=== PATIENT | female | born 1985 | race Two or more races ===

== ENCOUNTER 2024-01-31 10:40 | Day surgery (SDC) | payer MEDICAID, SELFPAY ==
[2024-01-30 12:26] VITALS: BMI 31.6
[2024-01-30 13:37] LABS: Basophils # (Auto) 0.1 Thou/mm3 (0.0-0.2); Basophils % (Auto) 1 % (0-2.5); Eosinophils % (Auto) 1 % (0-10); Hematocrit 37.9 % (36.0-46.0); Hemoglobin 12.4 g/dL (12.0-16.0); Immature Granulocytes % (Auto) 0 % (0-0); Immature Granulocytes Auto 0.03 Thou/mm3 (0.00-0.00); Lymphocytes # (Auto) 2.4 Thou/mm3 (1.0-4.8); Lymphocytes % (Auto) 35 % (10-50); Mean Corpuscular HGB Conc 32.7 g/dl (31.0-37.0); Mean Corpuscular Hemoglobin 28.6 pg (25.0-35.0); Mean Corpuscular Volume 88 fL (80-100); Monocytes # (Auto) 0.7 Thou/mm3 (0.0-0.8); Monocytes % (Auto) 11 % (0-12); Neutrophils # (Auto) 3.6 Thou/mm3 (1.8-7.7); Neutrophils % (Auto) 53 % (37-80); Nucleated Red Blood Cell % 0 /100 WBC (0); Platelet Count 214 Thou/mm3 (140-440); RDW Standard Deviation 45.6 fL (36.4-46.3); Red Blood Count 4.33 Miln/mm3 (4.00-5.20); White Blood Count 6.8 Thou/mm3 (3.6-11.0)
[2024-01-30 13:40] LABS: Anion Gap 7 (7-16); BUN/Creatinine Ratio 24 Ratio (12-20); Blood Urea Nitrogen 12 mg/dL (9-23); Calcium 8.9 mg/dL (8.3-10.6); Carbon Dioxide 23.7 mMol/L (20.0-31.0); Chloride 107 mMol/L (98-107); Creatinine (Component) 0.5 mg/dL (0.6-1.3); Estimated Creatinine Clearance 129.4 mL/min (>60); Glucose 78 mg/dL (74-106); Osmolality,Calculated 274 (275-295); Potassium 3.8 mMol/L (3.4-5.1); Sodium 138 mMol/L (136-145); eGFR > 60 See Note
[2024-01-30 13:43] LABS: HCG,Qualitative Serum Negative
[2024-01-31] VITALS (8 sets, daily range): BP systolic 100–118; BP diastolic 53–71; PULSE 77–109; RESP 12–24; TEMP 36.2–36.7; O2SAT 97–100; BMI 30.1
[2024-01-31] MEDS: RINGERS LACTATED 1000 ML 1,000 ML 20 ML IV (11:32)
--- NOTE | 2024-01-31 14:05 | PD.GYNPROC ---
Operative Note - ACQUISITION ASSOCIATE Procedure Date of procedure: 01/31/24 Procedure Performed: Laparoscopic bilateral salpingectomy IUD removal Indication: Desires permanent sterilization Pre-Op diagnosis: Desires permanent sterilization Post-Op diagnosis: Desires permanent sterilization Anesthesia type: General Procedure description: Informed consent was obtained patient was taken to the operating room.? General anesthesia was administered and airway was secured.? Patient was now positioned in the dorsal lithotomy position in [facility].? The abdomen and perineum were prepped in the usual sterile fashion and sterile drapes were applied.? The bladder was emptied using a straight catheter.?Attention was now turned to the patient's abdomen.? A 5 mm infraumbilical incision was made using a scalpel.? Laparoscopic entry was accomplished under direct visualization using [employer] laparoscopic trocar.? Once intra-abdominal placement was confirmed pneumoperitoneum was insufflated to 15 mmHg.? The camera was now introduced into the abdomen and a preliminary survey was performed showing normal uterus, tubes and ovaries. A pair of accessory ports were placed 2 cm cephalad and medial to the ASIS after a 5 and 8 mm incisions were done on the right and left side respectively.? The Enseal device was used to perform bilateral salpingectomy in the usual fashion with excellent hemostasis noted . All instruments were now withdrawn.? Pneumoperitoneum was desufflated.? The laparoscopic ports were removed.? The skin was now closed using 4-0 Monocryl in a subcuticular fashion Attention was then turned to the vagina where a speculum was inserted IUD strings were noted and removed without ring forceps Specimen: left tube, right tube and other (IUD) Estimated blood loss (ml): 5 Findings: Normal uterus, tubes, ovaries Complications: none Surgical staff Operation Date: 01/31/24 13:00 <No data on this case meets the specified criteria> Diagnosis Problem List Completed Was Problem List Reviewed/Reconciled?: Yes
--- NOTE | 2024-01-31 14:06 | SUR.PHASEI ---
pt received from OR in recovery bay 7. pt asleep but responds to voice, breathing unlabored on oxymask 6l. v/s stable. pt dressing to abd dermabond x3 cdi. report received from Bro WRIGHT and Stephanie MAGALLANES.
--- NOTE | 2024-01-31 14:06 | PD.GYNDS ---
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 Vital Signs Temp Pulse Resp BP Pulse Ox 98.1 F 77 12 118/71 98 01/31/24 11:25 01/31/24 11:25 01/31/24 11:25 01/31/24 11:25 01/31/24 11:25 Discharge Plan Plan Patient Disposition: HOME (Self Care) Prescriptions/Referrals Prescriptions/Med Rec: New ibuprofen 800 mg tablet 800 mg PO Q8H 7 Days Qty: 21 0RF Referrals: Demarcus Fan MD [Physician] - (1 to 2 weeks) Alvarez March MD [Primary Care Provider] - Patient/Caregiver Discharge Instructions Education Materials: Laparoscopic Tubal Sterilization, Preventing Surgical Site Infections Print Language: Kazakh Stand Alone Forms: Nelia Award Info., Patient Portal Info Letter Discharge Order Discharge Orders: Discharge (Routine); Ordered 01/31/24 Ordered By: Demarcus Fan
--- NOTE | 2024-01-31 15:00 | SUR.PHASEII ---
pt able to tolerate oral fluids without difficulty swallowing or nausea/vomiting.
--- NOTE | 2024-01-31 15:24 | SUR.PHASEII ---
pt awake and alert, breathing unlabored on room air. v/s stable. pt dressing to abd dermabond x3 cdi. pt able to ambulate to wheelchair with steady gait. d/c instructions given with Issa in room using spanish interpreter Michelle Castrejon, all questions answered. pt d/c via wheelchair with all belongings.
== END 2024-01-31 15:24 | disposition home or self-care (01) ==
PROVIDERS: PCP Family Medicine; Referring Provider Obstetrics & Gynecology; Visit Provider Obstetrics & Gynecology
PROC: (CPT 58720; principal; 2024-01-31 12:45)
DX: Z30.2 Encounter for sterilization (principal)
CPT/HCPCS: 58301; 58661; 36415; 80048; 84703; 85025; 86850; 86900; 86901; A4217; A4649; J0131; J1885; J2250; J2704; J3010; J3490; J7120; J1596